=== PATIENT | female | born 1995 | race Caucasian/White ===

== ENCOUNTER 2018-03-02 05:57 | Inpatient (IN) | payer OTHER ==
[2018-02-27 17:40] VITALS: BMI 41.1
[2018-03-02] MEDS ORDERED: PNEUMOC 13-VAL CONJ-DIP CRM/PF 0.5 ML DISP.SYRIN IM ONE (06:30)
[2018-03-02] MEDS ORDERED: ceFAZolin SODIUM 1 GM VIAL IVPB ONE (08:53)
[2018-03-02] MEDS ORDERED: BUPIVACAINE HCL/PF 0.5% (5MG/ML) 10 ML VIAL IJ ONE ×2 (09:05→10:15)
[2018-03-02] MEDS ORDERED: ONDANSETRON 4 MG/2 ML VIAL IVPUSH PRN (10:30)
--- NOTE | 2018-03-02 10:37 | OP ---
Operative Note - Note: Operative Date: 03/02/18 Pre-Operative Diagnosis: Morbid Obesity Operation: Laparoscopic Vertical Sleeve Gastrectomy Findings: Greater curve sleeve gastrectomy performed with #[address] Post-Operative Diagnosis: Same as Pre-op Surgeon: Epifanio Nance Horse Wrangler: Cecilia Simon Anesthesia: General Specimens Removed: Greater curve of stomach Estimated Blood Loss (mls): 50 Operative Report Dictated: Yes
--- NOTE | 2018-03-02 10:42 | PREOP ---
DATE OF ADMISSION: 03/02/2018 CHIEF COMPLAINT: Morbid obesity. HISTORY OF PRESENT ILLNESS: This is a 22-year-old female with a history of morbid obesity for many years despite multiple attempts at dietary weight loss. The patient was admitted to [facility] on March 02, 2018, for elective sleeve gastrectomy surgery. The patient received nutrition, psychological evaluation and clearance prior to undergoing sleeve gastrectomy surgery. PAST MEDICAL HISTORY: Significant for polycystic ovarian syndrome. PAST SURGICAL HISTORY: Noncontributory. The patient takes no medicines. The patient has no allergies. REVIEW OF SYMPTOMS: Neurologic: Within normal limits. Cardiovascular: Within normal limits. Respiration: Within normal limits. Gastrointestinal: Within normal limits. Extremities: Within normal limits. PHYSICAL EXAMINATION: General: A 22-year-old female awake, alert, no acute distress. HEENT: No masses palpable. Lungs: Clear breath sounds bilaterally. Heart: Regular sinus rhythm. Abdomen: Positive for obesity. It is soft, nontender to palpation. Extremities: No swelling. No edema noted. LABORATORY: Values are within normal limits. IMPRESSION: Morbid obesity. PLAN: Bring to the OR for sleeve gastrectomy surgery. Yoselyn [id number]
[2018-03-02] MEDS ORDERED: ACETAMINOPHEN INJECTION 100 ML IVPB ONE (10:45)
[2018-03-02] MEDS: METOCLOPRAMIDE HCL INJECTION 10 MG/2 ML VIAL IVPUSH SCH ×4 (10:45→21:06)
[2018-03-02] MEDS ORDERED: FAMOTIDINE 20 MG/50 ML IVPB 20 MG/50 ML MG IVPB ONE (10:45)
--- NOTE | 2018-03-02 10:53 | SURG ---
Surgery Supervisor Blood Donor Recruiters Note Supervisor Blood Donor Recruiters: Cecilia Simon PA-C Date of Service: 03/02/18 Diagnosis: Morbid Obesity Procedure: Laparoscopic Vertical Sleeve Gastrectomy I was present for the entirety of the operative procedure. For further detail, please refer to operative report. Visit type - Case Type Case Type: Scheduled - Emergency Emergency Visit: No - New patient This patient is new to me today: Yes Date on this admission: 03/02/18
[2018-03-02 11:27] LABS: HEMATOCRIT 40.7 % (32.4-45.2); HEMOGLOBIN 13.8 GM/dL (10.7-15.3); MCH 30.3 pg (25.7-33.7); MEAN CELL VOLUME 89.2 fl (80-96); MEAN PLT VOLUME 8.4 fl (7.5-11.1); PLATELET COUNT 358 K/MM3 (134-434); RBC 4.56 M/mm3 (3.60-5.2); RDW 13.7 % (11.6-15.6)
[2018-03-02] MEDS ORDERED: FAMOTIDINE 20 MG PREMIXED IVPB IVPB ONE (11:27)
[2018-03-02 11:53] LABS: ALBUMIN 3.6 g/dl (3.4-5.0); ALK PHOS 80 U/L (45-117); ANION GAP 6 MMOL/L (8-16); BILIRUBIN,TOTAL 0.3 mg/dL (0.2-1.0); BLOOD UREA NITROGEN 12 mg/dL (7-18); CALCIUM 8.7 mg/dL (8.5-10.1); CHLORIDE 102 mmol/L (98-107); CO2 29 mmol/L (21-32); CREATININE 0.8 mg/dL (0.55-1.02); GLUCOSE,RANDOM 137 mg/dL (74-106); POTASSIUM 4.7 mmol/L (3.5-5.1); SGOT/AST 37 U/L (15-37); SGPT/ALT 63 U/L (12-78); SODIUM 137 mmol/L (136-145); TOT PROT 7.4 g/dl (6.4-8.2)
[2018-03-02] MEDS: SODIUM CHLORIDE 1,000 ML IV SCH ×3 (12:30→19:31)
[2018-03-02] MEDS ORDERED: ACETAMINOPHEN 1000 MG/100 ML VIAL (NON FORMULARY) IVPB ONE (13:45)
[2018-03-02] MEDS ORDERED: PNEUMOCOCCAL 23 VACCINE 0.5 ML VIAL IM ONE (19:45)
--- NOTE | 2018-03-02 20:05 | OP ---
DATE OF OPERATION: 03/02/2018 PREOPERATIVE DIAGNOSIS: Morbid obesity. POSTOPERATIVE DIAGNOSIS: Morbid obesity. PROCEDURE PERFORMED: 1. Laparoscopic vertical sleeve gastrectomy. 2. Diagnostic laparoscopy. OPERATING SURGEON: Epifanio Nance MD TECHNOLOGY ANALYST: VIKAS Rios ANESTHESIA: General. OPERATIVE PROCEDURE: The patient was brought into the operating room and placed on the OR table in the supine position. All precautions were taken initially including padding for the back and the feet, and Venodyne boots were placed on both lower extremities. At that point, the abdomen was prepped and draped in the usual manner. A Veress needle was placed in the left upper quadrant, and a pneumoperitoneum was established. A number 12 bladeless trocar was placed in the left upper quadrant. Through that trocar, a laparoscopic camera was placed. Under direct vision, a number 15 bladeless trocar was placed in the midline in the supraumbilical position, followed by a number 5 bladeless trocar in the right upper quadrant and a number 5 bladeless trocar below the left costal margin. A Argenis liver retractor was then placed in the epigastrium to retract the left lobe of the liver. The patient was then placed in a 20-degree reverse Trendelenburg position by Anesthesia. A distal stomach was noted, and the pylorus was noted in this area. From the pylorus, 6 cm were measured proximally, and here, the operating surgeon lifted the stomach toward the anterior abdominal wall as the assistant unit forester surgeon retracted the gastrocolic ligament inferiorly. The LigaSure device was used to dissect the gastrocolic ligament and then the short gastric vessels off the greater curve of the stomach. This continued in a superior and vertical direction until the final short gastric vessel between the superior pole of spleen and the proximal fundus was divided. At this juncture, Anesthesia advanced a number 40 bougie, which was kept in place at the time of anesthesia induction. With the bougie now all the way down in the stomach, into the antrum, and held along the lesser curve, a series of theodora was performed, the first two being black load theodora 6 cm in length along the bougie. This was followed by a series of purple load theodora also 6 cm in length and also hugging the bougie. This continued until the final staple was fired in the left upper quadrant, and the greater curve was now completely detached from the lesser curve. It should be noted that prior to firing each staple, both the anterior and posterior hodge were checked that they were equal, and in the area of the esophagogastric junction, approximately 1 to 1.5 cm of serosa remained on the anterior and posterior surfaces. At this juncture, there were 1 or 2 bleeding points noted from the staple line. The staple line was oversewn from proximal unto almost all the way distal, and this was done with the Endostitch in a continuous fashion. At this juncture, saline was placed around the staple line, and Anesthesia inflated air into the bougie, which showed the entire stomach distended. No obstruction and no leaks were noted. At this juncture, the bougie was removed by Anesthesia from the stomach under direct vision. At this point, the resected greater curve of stomach was removed through the number 15 trocar site and sent off the field as specimen to Pathology. Under direct vision, all trocars removed and pneumoperitoneum was released. All trocar sites received 0.25% Marcaine and were closed with 4-0 Biosyn in subcuticular fashion. The number 15 trocar in the midline was first closed with 3-0 Vicryl on the subcutaneous tissue, followed by 4-0 Biosyn in subcuticular fashion. Dressings were applied. Patient awoke from anesthesia and transferred out of the operating room to the recovery room in stable condition. EXPECTED BLOOD LOSS: 50 mL Yoselyn [id number]
[2018-03-02] MEDS: ENOXAPARIN NA (PORCINE) 40 MG/0.4 ML DISP.SYRIN SQ SCH (21:06)
[2018-03-02] MEDS: FAMOTIDINE 20 MG/50 ML IVPB 20 MG/50 ML MG IVPB SCH (21:06)
[2018-03-02] MEDS: MORPHINE SULFATE 2 MG/ML VIAL IVPUSH PRN (21:54)
[2018-03-03] MEDS: MORPHINE SULFATE 2 MG/ML VIAL IVPUSH PRN ×3 (01:08→10:06)
[2018-03-03] MEDS: METOCLOPRAMIDE HCL INJECTION 10 MG/2 ML VIAL IVPUSH SCH ×2 (02:11→10:07)
[2018-03-03 05:54] VITALS: TEMP 98.4
[2018-03-03 06:57] LABS: HEMATOCRIT 38.7 % (32.4-45.2); HEMOGLOBIN 12.5 GM/dL (10.7-15.3); MCH 28.8 pg (25.7-33.7); MCHC 32.1 g/dl (32.0-36.0); MEAN CELL VOLUME 89.5 fl (80-96); MEAN PLT VOLUME 8.6 fl (7.5-11.1); PLATELET COUNT 300 K/MM3 (134-434); RBC 4.33 M/mm3 (3.60-5.2); RDW 13.3 % (11.6-15.6); WHITE BLOOD COUNT 14.9 K/mm3 (4.0-10.0)
[2018-03-03 07:44] LABS: CHLORIDE 105 mmol/L (98-107); POTASSIUM 4.2 mmol/L (3.5-5.1); SODIUM 140 mmol/L (136-145)
[2018-03-03 08:04] LABS: ALK PHOS 66 U/L (45-117); ANION GAP 10 MMOL/L (8-16); BILIRUBIN,TOTAL 0.4 mg/dL (0.2-1.0); BLOOD UREA NITROGEN 9 mg/dL (7-18); CALCIUM 8.4 mg/dL (8.5-10.1); CO2 25 mmol/L (21-32); CREATININE 0.4 mg/dL (0.55-1.02); GLUCOSE,RANDOM 85 mg/dL (74-106); SGOT/AST 19 U/L (15-37); SGPT/ALT 44 U/L (12-78); TOT PROT 6.3 g/dl (6.4-8.2)
[2018-03-03 08:22] VITALS: BP 144/88; PULSE 95
[2018-03-03] MEDS ORDERED: PNEUMOCOCCAL 23 VACCINE 0.5 ML VIAL IM ONE (09:00)
--- NOTE | 2018-03-03 09:48 | PN ---
Progress Note (short form) - Note Progress Note: Anesthesia POD#1 S/P Lap Sleeve Gastrectomy under GA VSS,mild pain,no N/v,walking around well. Dina Beck MD.
[2018-03-03] MEDS: ENOXAPARIN NA (PORCINE) 40 MG/0.4 ML DISP.SYRIN SQ SCH (10:06)
[2018-03-03] MEDS: FAMOTIDINE 20 MG/50 ML IVPB 20 MG/50 ML MG IVPB SCH (10:07)
--- NOTE | 2018-03-03 11:12 | DS ---
Physical Exam: SUBJECTIVE: Patient seen and examined. No acute events since surgery per RN notes. She's been OOB and ambulating unassisted. Voiding spontaneously. Denies n /v/f/c, cough, CP, paplpiations, SOB or FERNANDEZ. OBJECTIVE: Last Vital Signs Temp Pulse Resp BP Pulse Ox 98.4 F 95 H 18 144/88 100 03/03/18 05:00 03/03/18 08:21 03/03/18 08:21 03/03/18 08:21 03/02/18 21:00 PE GENERAL: The patient is awake, alert, and fully oriented, in no acute distress. HEAD: Normal with no signs of trauma. EYES: PERRL, extraocular movements intact, sclera anicteric, conjunctiva clear. ENT: Ears normal, nares patent, oropharynx clear without exudates, moist mucous membranes. NECK: Trachea midline, full range of motion, supple. LUNGS: CTA bilat HEART: RRR. No murmurs detected. ABDOMEN: All surgical ports c/d/i. No hematoma EXTREMITIES: 2+ pulses, warm, well-perfused, no edema. NEUROLOGICAL: Cranial nerves II through XII grossly intact. Normal speech, gait not observed. PSYCH: Normal mood, normal affect. SKIN: Warm, dry, normal turgor, no rashes or lesions noted. LABS CBC,CMP WBC 14.9 K/mm3 (4.0-10.0) H 03/03/18 05:30 RBC 4.33 M/mm3 (3.60-5.2) 03/03/18 05:30 Hgb 12.5 GM/dL (10.7-15.3) 03/03/18 05:30 Hct 38.7 % (32.4-45.2) 03/03/18 05:30 MCV 89.5 fl (80-96) 03/03/18 05:30 MCH 28.8 pg (25.7-33.7) 03/03/18 05:30 MCHC 32.1 g/dl (32.0-36.0) 03/03/18 05:30 RDW 13.3 % (11.6-15.6) 03/03/18 05:30 Plt Count 300 K/MM3 (134-434) 03/03/18 05:30 MPV 8.6 fl (7.5-11.1) 03/03/18 05:30 Sodium 140 mmol/L (136-145) 03/03/18 05:30 Potassium 4.2 mmol/L (3.5-5.1) 03/03/18 05:30 Chloride 105 mmol/L (98-107) 03/03/18 05:30 Carbon Dioxide 25 mmol/L (21-32) 03/03/18 05:30 Anion Gap 10 MMOL/L (8-16) 03/03/18 05:30 BUN 9 mg/dL (7-18) 03/03/18 05:30 Creatinine 0.4 mg/dL (0.55-1.02) L 03/03/18 05:30 Creat Clearance w eGFR > 60 (>60) 03/03/18 05:30 Random Glucose 85 mg/dL (74-106) 03/03/18 05:30 Calcium 8.4 mg/dL (8.5-10.1) L 03/03/18 05:30 Total Bilirubin 0.4 mg/dL (0.2-1.0) 03/03/18 05:30 AST 19 U/L (15-37) 03/03/18 05:30 ALT 44 U/L (12-78) 03/03/18 05:30 Alkaline Phosphatase 66 U/L (45-117) D 03/03/18 05:30 Total Protein 6.3 g/dl (6.4-8.2) L 03/03/18 05:30 Albumin 3.0 g/dl (3.4-5.0) L 03/03/18 05:30 Serum , Qual Negative 03/02/18 06:20 HOSPITAL COURSE: Date of Admission:03/02/18 Date of Discharge: 03/03/18 The patient was admitted to the Med-Surg Unit s/p laprascopic vertical sleeve gastrectomy. The day of surgery, the patient ambulated the hallways with assistance. Narcotic and non-narcotic pain management control was achieved with an oral and IV approach. Juliet-operative IV ABX were administered. DVT prophylaxis was achieved with SCDs and early ambulation. POD #1 patient had an UGI which showed no leak/extravastion or gastric outlet obstruction. She was started on a bariatric stage 1 diet and tolerated. Narcotic scripts and or muscle relaxants were checked with [facility] IMMUNOLOGIST prior to escribe. The discharge instructions and an oral pain management plan were reviewed with the patient. All questions answered. Above plan discussed with Dr. Nance and agreed. Minutes to complete discharge: 15 Visit type - Case Type Case Type: Scheduled - New patient This patient is new to me today: Yes Date on this admission: 03/03/18
--- NOTE | 2018-03-03 11:28 | PATH ---
Surgical Pathology Report Patient Name: ALEXIS ISBELL [facility]. Rec. #: [id number] /Age/Gender: 1995 (Age: 22) / F Account: [id number] Location: 4 W TELEMETRY U Taken: 03/02/2018 Received: 03/02/2018 Reported: 03/03/2018 Physicians: Epifanio Nance M.D. Specimen(s) Received GREATER CURVATURE STOMACH Clinical History Morbid obesity Final Diagnosis STOMACH, GREATER CURVATURE, LAPAROSCOPIC VERTICAL SLEEVE GASTRECTOMY: PORTION OF STOMACH WITH MILD CHRONIC GASTRITIS. IMMUNOHISTOCHEMICAL STAIN FOR H. PYLORI IS NEGATIVE. Electronically Signed Malaika Allen M.D. Gross Description Received in formalin, labeled "greater curvature of stomach," is a 77 gram, 18.0 x 5.0 x 3.5 cm. portion of stomach with a stapled margin of resection. The serosa is leija-daigle with minimal attached fat. The mucosa is leija-pink with focally flattened folds. No mucosal masses are identified. Legal Referee sections are submitted in one cassette. /03/02/2018 [facility]/03/02/2018
--- NOTE | 2018-03-03 14:25 | DS ---
DATE OF ADMISSION: 03/02/2018 DATE OF DISCHARGE: 03/03/2018 HISTORY OF PRESENT ILLNESS/HOSPITAL COURSE: The patient is a 22-year-old female with history of morbid obesity for many years prior to admission. She was admitted to the [facility] on March 02, 2018, for elective sleeve gastrectomy surgery. The details of the operation are described in the operative note, but postoperatively, the patient was sent to recovery room where she was stabilized and sent to the fourth floor on telemetry monitoring. The patient remained stable overnight with normal vital signs, and the following morning on March 03, 2018, she was brought to x-ray where a Gastrografin swallow showed no leakage and no signs of obstruction. She returned to her room where she tolerated 2 ounces of clear liquid very well without any difficulty. With the patient having normal lab values, normal vital signs, ambulating without problem, and tolerating clear liquids 2 ounces 3-5 times a day, she is discharged home at this point. She is scheduled to return to the bariatric service in 9 days for followup, and at that time, her diet will be re-assessed and possibly advanced. ONEIDA STOREY M.D. [id number]
== END 2018-03-03 13:09 | disposition home or self-care (01) | DRG 621 ==
LOC: J7W 05:57 → UNDOADMIN 05:57 → J4W 06:01 → EDSTATUS 08:00
PROVIDERS: ADMIT Surgery; ATTEND Surgery
PROC: 0DB64Z3 Excision of Stomach, Percutaneous Endoscopic Approach, Vertical (ICD-10-PCS; principal; 2018-03-02 08:00)
DX: E66.01 Morbid (severe) obesity due to excess calories (principal); E28.2 Polycystic ovarian syndrome; Z68.41 Body mass index [BMI] 40.0-44.9, adult
CPT/HCPCS: 36415; 74241-TC-FY; 80053; 84703; 85027; 86850; 86900; 86901; 88307-TC; 90732; 94760; G0009; J0131; J7030